=== PATIENT | male | born 1965 | race Caucasian/White ===

== ENCOUNTER 2016-05-01 08:23 | Emergency (ER) | payer OTHER ==
[~2016-05-01] VITALS: Ht 172.7 cm; Wt 107.5 kg
[2016-05-01] MEDS ORDERED: FLEXERIL PO (08:25)
[2016-05-01] MEDS ORDERED: AMLODIPINE BESY10 MG PO (08:26)
[2016-05-01] MEDS ORDERED: HYDROCODONE-AP1 EAC6 PO (08:50)
[2016-05-01 11:36] VITALS: BP 128/92
== END 2016-05-01 12:41 | disposition short-term general hospital (02) ==
LOC: ER 08:23
DX: S22.081A Stable burst fracture of T11-T12 vertebra, initial encounter for closed fracture (principal); I10 Essential (primary) hypertension; Z98.890 Other specified postprocedural states; F17.210 Nicotine dependence, cigarettes, uncomplicated; W17.89XA Other fall from one level to another, initial encounter; Y93.89 Activity, other specified; Y92.89 Other specified places as the place of occurrence of the external cause; Y99.0 Civilian activity done for income or pay